=== PATIENT | female | born 1995 | race Caucasian/White ===

== ENCOUNTER 2021-10-17 | Outpatient (REF) | payer OTHER, SELFPAY | END 2021-10-17 00:01 | disposition home or self-care (01) | LOC: HO.HMGCLDS | PROVIDERS: PCP Internal Medicine; Visit Provider Internal Medicine | DX: Z13.89 Encounter for screening for other disorder (principal) ==

== ENCOUNTER 2024-06-14 13:04 | Outpatient (REF) | payer OTHER, SELFPAY ==
[2024-06-19 06:19] LABS: Venous Lead <1.0 mcg/dL (<3.5)
== END 2024-06-14 13:05 | disposition home or self-care (01) ==
LOC: HO.HMGCLDS 13:04
PROVIDERS: PCP Internal Medicine; Visit Provider Internal Medicine
DX: Z00.00 Encounter for general adult medical examination without abnormal findings (principal); Z13.88 Encounter for screening for disorder due to exposure to contaminants; Z13.30 Encounter for screening examination for mental health and behavioral disorders, unspecified; Z98.891 History of uterine scar from previous surgery
CPT/HCPCS: 36415; 83655; 96127; 99395

== ENCOUNTER 2024-06-14 13:04 | Outpatient (AMB) | payer OTHER, SELFPAY ==
[2024-06-14 13:09] VITALS: BP 118/78; PULSE 85; O2SAT 98; BMI 29.1
--- NOTE | 2024-06-14 13:09 | MHC.PC.OV ---
Vital Signs 06/14/24 13:09 Height 5 ft 3.5 in Weight 167 lb 2 oz BMI 29.1 BP 118/78 Blood Pressure Location Lt brachial Position Sitting Pulse 85 Pulse Source Pulse Oximeter Pulse Oximetry (%) 98 Oxygen Delivery Method Room Air Intake Visit Reasons: PE Intake Note: Pt is here today for her Annual Physical. Allergies aspirin [ASPIRIN] Allergy (Unknown, Verified 06/14/24 13:10) RASH Medication List - Last Reconciled 06/14/24 by oJnna Mosher MD vit [id number] 28 mg iron- 800 mcg (Classic ) 1 tab PO DAILY simethicone 80 mg PO Q6H Tobacco use date assessed: 06/14/24 Dental Screening Dental Screen Date: 06/14/24 Did you have a dental visit in the last 12 months?: Yes Did you have a dental problem in the last 6 months where you did not have access to dental care?: No Was dental information given to patient?: Patient has dentist HPI PE HPI Details Pt presents for PE. Patient had a baby 1 month ago and doing well. Patient had an uneventful and . 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 [facility] Medical History Annual physical exam Vaginosis Chest pain Surgical History Hx of section No pertinent past surgical history Family History Father TIA (transient ischemic attack) Mother Prediabetes Social History (Updated 06/14/24 @ 13:49 by Jonna Mosher MD) Household Members Other:: 2 children, 2 yr and 1 month girl, Housing: Apartment Alcohol intake: never Patient Tobacco Use Status: Never used Tobacco e-Cigarette/Vaping Use: Never Used Current occupational status: unemployed Gender identity: Female Cognitive needs: No Hearing needs: No Vision needs: Yes Female Reproductive History Menstrual Age of Menarche: 13 Questionnaire PHQ-9 Over the last 2 weeks, how often have you been bothered by any of the following problems? 22892 - PHQ-9 Billing: Patient declined-do not bill Source: Developed by Drs. Marquis Swenson, Dede B.W. Edmundo Elaine and colleagues, with an educational lester from [employer]. Thrive Questionnaire Date Thrive assessed: 06/14/24 I am a: Patient What is your living situation today?: I have a steady place to live Within the past 12 months, did the food you bought not last and you didn't have the money to get more?: Never true Within the past 12 months, did you worry whether your food would run out before you got money to buy more?: Never true Do you have trouble paying for medicines?: No Do you have trouble getting transportation to medical appointments?: No Do you have trouble paying your heating and electricity bill?: No Do you have trouble taking care of your child, family member or friend?: No Do you have trouble with day-to-day activities such as bathing, preparing meals, shopping, managing finances, etc.?: No Are you currently unemployed and looking for a job?: No Are you interested in more education?: No Please select the resources that you would like help with: None Currently or been in a relationship where the following occur: No concerns reported THRIVE Score: 0 AUDIT C Alcohol Use Questionnaire (AUDIT-C) 1. How often do you have a drink containing alcohol?: Never 3. How often do you have six or more drinks on one occasion?: Never Total Score: 0 Score Reviewed/Action Taken: Yes JULIET-7 AMB Questionnaire JULIET-7 Date JULIET - 7 assessed: 06/14/24 Feeling nervous, anxious, or on edge: 0 = Not at all Not being able to stop or control worryin = Not at all Worrying too much about different things: 0 = Not at all Trouble relaxin = Not at all Being so restless that it is hard to sit still: 0 = Not at all Becoming easily annoyed or irritable: 0 = Not at all Feeling afraid as if something awful might happen: 0 = Not at all Total JULIET-7 score (0-4 normal; 5-9 mild; 10-14 moderate; 15-21 severe): 0 Source: Developed by Drs. Marquis Swenson, Edmundo Bolaños and colleagues, with an educational lester from [employer]. JULIET-7 Assessment Billing JULIET-7 Assessment Tool: JULIET-7 Assessment 46449 Review of Systems Const All systems reviewed & are unremarkable except as noted in HPI and below Eyes Reports no additional complaints ENT Reports no additional complaints Card Reports no additional complaints Resp Reports no additional complaints GI Reports no additional complaints Reports no additional complaints Physical exam (Primary Care) Vital Signs: Last Vital Signs Pulse 85 06/14/24 13:09 BP 118/78 06/14/24 13:09 Pulse Ox 98 06/14/24 13:09 Oxygen Delivery Method Room Air 06/14/24 13:09 BMI result Body Mass Index 29.1 Tobacco/Smoking Status: Tobacco use Status Tobacco use date assessed 06/14/24 06/14/24 13:13 Patient Tobacco Use Status Never used Tobacco 06/14/24 13:13 e-Cigarette/Vaping Use Never Used 06/14/24 13:13 Thrive Assessment: Date of Thrive Assessment Date Thrive assessed 06/14/24 06/14/24 13:13 Currently or been in a relationship where the following occur: No concerns reported Const General: no acute distress HENMT Head: Yes normal to inspection Ears: hearing grossly normal bilaterally Mouth: Normal oral and palatal mucosa present Throat: Yes posterior oropharynx normal Eyes General: appearance normal, both eyes and all related structures Neck Neck: Yes no lymphadenopathy and Yes supple Resp Effort & Inspection: normal respiratory effort Auscultation: clear to auscultation bilaterally Cardio Rhythm: regular rhythm Heart sounds: S1 normal heart sound present and S2 normal heart sound present GI Inspection: Yes normal to inspection Palpation (GI): Soft to palpation Percussion: Yes normal to percussion Auscultation: normal bowel sounds Coding Level of Care Code Est Pt Prev Care 18-39y(53397) Diagnoses Annual physical exam Z00.00 Additional Codes JULIET-7 Assessment Billing - JULIET-7 Assessment Tool: JULIET-7 Assessment 46564 ([id number]) Assessment & Plan Assessment & Plan (1) Annual physical exam: Code(s): Z00.00 - Encounter for general adult medical examination without abnormal findings Category: Medical Plan: Well-balanced diet regular physical activity discussed with the patient. Medications: Discontinued lactobacillus combination no.4 (Probiotic) administer with a meal Discontinued Reason: Patient no longer taking 3,000 mmu cells PO DAILY 90 caps 3RF
--- OUTSIDE RECORDS SUMMARY | 2024-06-14 15:33 | XMS_ITS | Encounter Summary ---
Author Organization [facility] Address [address] [place] [address] Phone Care Team Providers Care Director Packaging Name Role Phone Natali Lo MD Primary Care Provider Unavailabl e Encounter Details Date Type Department Care Team (Late st Contact Info) Description 07/26/2016 Documentation [facility] [place] [facility] [place] [address] Family Medicine, Physician [facility] [place], [place] [id number] Social History Tobacco Use Types Packs/Day Years Used Date Smoking Tobacco: Never Comments:Never smoker Comments Unknown Sex and Gender Information Value Date Recorded Sex Assigned at Not on file Legal Sex Female 5:20 PM EDT Gender Identity Not on file Sexual Orientation Not on file documented as of this encounter Plan of Treatment Not on file documented as of this encounter Visit Diagnoses Not on filedocumented in this encounter Care Teams Director Packaging Relationship Specialty Start Date End Date Natali Lo MD PCP - General 11/05/16 documented as of this encounter
--- OUTSIDE RECORDS SUMMARY | 2024-06-14 15:33 | XMS_ITS | Encounter Summary ---
Author Organization [facility] Address [address] [place] [address] Phone Care Team Providers Care X Ray Operator Name Role Phone Natali Lo MD Primary Care Provider Unavailabl e Encounter Details Date Type Department Care Team (Late st Contact Info) Description 04/21/2012 Documentation [facility] [place] Family Medicine [facility] [place] [address] Family Medicine, Physician [facility] [place] [id number] Social History Tobacco Use Types Packs/Day Years Used Date Smoking Tobacco: Never Assessed Comments Unknown Sex and Gender Information Value Date Recorded Sex Assigned at Not on file Legal Sex Female 5:20 PM EDT Gender Identity Not on file Sexual Orientation Not on file documented as of this encounter Plan of Treatment Not on file documented as of this encounter Visit Diagnoses Not on filedocumented in this encounter Care Teams X Ray Operator Relationship Specialty Start Date End Date Natali Lo MD PCP - General 11/05/16 documented as of this encounter
--- OUTSIDE RECORDS SUMMARY | 2024-06-14 15:33 | XMS_ITS | Encounter Summary ---
Author Organization [facility] Address [address] [place] [address] Phone Care Team Providers Care Hydro Plant Site Manager Name Role Phone Natali Lo MD Primary Care Provider Unavailabl e Encounter Details Date Type Department Care Team (Late st Contact Info) Description 01/27/2017 Conversion Encounter [facility] - [address] [address] Social History Tobacco Use Types Packs/Day Years [...] on filedocumented in this encounter Care Teams Hydro Plant Site Manager Relationship Specialty Start Date End Date aNtali Lo MD PCP - General 11/05/16 documented as of this encounter
--- OUTSIDE RECORDS SUMMARY | 2024-06-14 15:33 | XMS_ITS | Clinical Summary ---
Author Organization [facility] Address [address] [place] [address] Phone Care Team Providers Care Teachers Aide Name Role Phone Unavailable Primary Care Provider Unavailabl e Encounters Date Type Department Care Team Description 04/13/2024 2:00 PM EST Ancillary Procedure Maternal Medicine - [address] [phone] Encounter for anatomic survey from Last 3 Months Social History Tobacco Use Types Packs/Day Years Used Date Smoking Tobacco: Never Assessed Comments Unknown Sex and Gender Information Value Date Recorded Sex Assigned at Female 04/09/2024 1:38 PM EST Legal Sex Female 2:31 PM EST Gender Identity Female 04/09/2024 1:38 PM EST Sexual Orientation Choose not to disclose 2024 1:38 PM EST Plan of Treatment Health Maintenance Due Date Last Done Comments Pneumococcal Vaccine: Pediatrics (0 to 5 Years) and At-Risk Patients (6 to 64 Years) (1 of 2 - PCV) 09/28/2015 Cervical Cancer Screening: Pap Smear 2017 DTaP,Tdap,and Td Vaccines (7 - Td or Tdap) 02/04/2019 02/04/2009, 10/11/2000, 04/10/1998, Additional history exists COVID-19 Vaccine ( season) 2023 Influenza Vaccine (#1) 2023 1, 02/05/2010, 02/04/2009, Additional history exists Depression Screening 04/09/2024 HIV Screening 04/09/2024 Hepatitis C Screening 04/09/2024 Social Influencers of Health Screening 04/09/2024 Hepatitis B Vaccines Completed 04/05/1997, 01/30/1997, 1996 HIB Vaccines Completed 04/15/1998, 11/1997, 01/30/1997, Additional history exists MMR Vaccines Completed 10/11/2000, 10/08/1997 Varicella Vaccines Aged Out 10/11/2000 No longer eligible based on patient's age to complete this topic IPV Vaccines Completed 10/13/2000, 11/1997, 01/30/1997, Additional history exists HPV Vaccines Completed 02/09/2011, 01/26, 02/04/2009 Hepatitis A Vaccines Completed 11/25/2015, 08/23/19 14 Meningococcal ACWY Vaccine Aged Out 11/25/2015, No longer eligible based on patient's age to complete this topic Meningococcal B Vacine Aged Out No lo nger eligible based on patient's age to complete this topic RSV Immunization Patients Under 20 months Aged Out No longer eligible based on patient's age to complete this topic Procedures Procedure Name Priority Date/Time Associated Diagnosis Comments US OB TRANSVAGINAL Routine 04/13/2024 3: 42 PM EST Encounter for anatomic survey US OB DETAILED SINGLE OR FIRST GESTATION Routine 04/13/2024 3:42 PM EST Encounter for anatomic survey from Last 3 Months Results * US OB Transvaginal (04/13/2024 3:42 PM EST) Anatomical Region Laterality Modality Body Ultrasound 04/13/2024 3:09 PM EST Impressions 04/17/2024 12:10 PM EST Recommendations/Plan: No additional ultrasounds have been scheduled. Follow up as clinically indicated. Addendum - Report update to state that there are no signs of accreta. Narrative 04/17/2024 12:10 PM EST OBSTETRICS REPORT ? (Corrected Final 04/19/2024 01:34 pm) PATIENT INFO: ID #: ? [id number] ? : ??[birth year] (28 yrs)(F) Name: ? SUSANNA WOMACK ? Visit Date: 04/13/2024 03:09 pm ? HENRY PERFORMED BY: Attending: ?Cassie Wetzel MD Performed By: ? Travis Boyd RDMS Referred By: ?DAVID GODDARD MD Location: ? [facility] SERVICE(S) PROVIDED: US Level II complete (Targeted OB) ?90418 OB Transvaginal ultrasound ?25848 INDICATIONS: Obesity complicating , 1st ?O99.211 trimester Maternal care for scar from previous ? O34.211 delivery, low transverse scar 34 weeks gestation of ?Z3A.34 TECHNIQUE/SCAN QUALITY: Technique: ?? Transabdominal & Transvaginal Scan ? Satisfactory Quality: OB HISTORY: : ?2 ? Term: ?? 1 Living: ? 1 VITAL SIGNS: Weight (lb) ?? Height ?BMI 171 ? 5'3 ?30.29 EVALUATION: Number Of Fetuses: ? 1 Preg. Location: ?Intrauterine Heart Rate(bpm): ?? 152 Cardiac Activity: ?Observed Presentation: ?Cephalic Placenta Location: ?Anterior Appearance: ?Grade 2 Relation to CVX: ? No previa Cord Insertion: ?Normal appearance Amniotic Fluid MARLENY FV: ?Within Normal Limits RUQ(cm) ? RLQ(cm) ?LLQ(cm) 5.96 ?2.67 ? 2.17 MARLENY Sum(cm) ? %Tile ? Largest Pocket(cm) 10.8 ?26 ?5.96 Comment: ?A >2 x 2 cm pocket of fluid is noted. BIOMETRY: BPD: ?85.3 ??mm ? G.Age: ?? 34w 3d ?37 ??% HC: ?311.8 ??mm ? G.Age: ?? 34w 6d ?18 ??% AC: ?302.8 ??mm ? G.Age: ?? 34w 2d ?38 ??% FL: ? 64.3 ??mm ? G.Age: ?? 33w 1d ? 8 ??% HUM: ?56 ??mm ? G.Age: ?? 32w 4d ?18 ??% CER: ?47.3 ??mm ? G.Age: ?? N/A ? > 95 ??% NB: ?12.61 ??mm ? 75 ??% LV: ?4.1 ??mm CM: ?7.5 ??mm OOD: ?51.9 ??mm ? G.Age: ?? 31w 6d ?45 ??% CI: ? 75.29 ??% ? 70 - 86 FL/HC: ? 20.6 ??% ? 20.1 - 22.3 HC/AC: ? 1.03 ?0.93 - 1.11 FL/BPD: ?75.4 ??% ? 71 - 87 FL/AC: ? 21.2 ??% ? 20 - 24 Est. FW: ?2333 ??gm ?5 lb 2 oz ? 24 ??% GESTATIONAL AGE: LMP: ? 34w 6d ?Date: ??08/13/23 ?BLANCHE: ?? 05/19/24 U/S Today: ? 34w 1d ?BLANCHE: ?? 05/24/24 Best: ?34w 6d ?? Det. By: ??LMP ??(08/13/23) ?BLANCHE: ?? 05/19/24 DETAILED ANATOMY: Head / Neck Cranial Vault: ?Normal appearance Cavum Septi Pellucidi: ??Normal appearance Parenchyma: ? Normal appearance R. Lat. Ventricle: ?Normal appearance L. Lat. Ventricle: ?Normal appearance Corpus Callosum: ?Suboptimal views Midline Falx: ? Normal appearance R. Choroid Plexus: ?Normal appearance L. Choroid Plexus.: ? Normal appearance Cerebellum: ? Normal appearance CCisterna Magna: ?Normal appearance Neck: ? Suboptimal views Face Face Profile: ? Normal appearance Nasal Bone: ? Normal appearance Coronal Face: ? Normal appearance Lips: ? Normal appearance Nose: ? Normal appearance Lenses: ? Normal appearance Orbits: ? Normal appearance Palate: ? Suboptimal views Heart Cardiac Activity: ? Normal appearance Cardiac Rhythm: ? Normal appearance 4 Chamber View: ? Suboptimal views R. Outflow Tract: ? Normal appearance L. Outflow Tract: ? Normal appearance Interventr. Septum: ? Normal appearance 3 Vessel View: ?Normal appearance 3V Trachea View: ?Normal appearance Cardiac Situs: ?Normal appearance Aortic ??Arch: ? Suboptimal views SVC: ?Normal appearance IVC: ?Normal appearance Ductal ??Arch: ? Suboptimal views Crossing G. Ves.: ? Normal appearance Thorax Lungs: ?Normal appearance Cardiac Harrison: ? Normal appearance Diaphragm: ?Normal appearance Thoracic Contour: ? Normal appearance Abdomen Situs: ?Normal appearance Stomach: ?Normal appearance Bowel: ?Normal appearance Liver: ?Normal appearance Abdominal Wall: ? Normal appearance Urinary Bladder: ?Normal appearance R. Kidney: ?Normal appearance L. Kidney: ?Normal appearance R. Renal Artery: ?Normal appearance L. Renal Artery: ?Normal appearance Umbilical Cord: ? Normal Appearance UC Vessel Num.: ? Normal 3VC Cord Insertion: ? Suboptimal views Spine Cervical: ? Normal appearance Thoracic: ? Normal appearance Lumbar: ? Normal appearance Sacral: ? Normal appearance Shape / Curvature: ?Normal appearance Over. Soft Tissue: ?Suboptimal views Vertebral Body: ? Normal appearance Extremities R. Humerus: ? Normal appearance L. Humerus: ? Normal appearance R. Forearm: ? Normal appearance L. Forearm: ? Suboptimal views R. Hand: ?Suboptimal views L. Hand: ?Suboptimal views R. Femur: ? Normal appearance L. Femur: ? Normal appearance R. Lower Leg: ? Normal appearance L. Lower Leg: ? Suboptimal views R. Foot: ?Normal appearance L. Foot: ?Normal appearance CERVIX UTERUS ADNEXA: Cervix Appears closed COMMENTS: Ms. Hola Louise is being seen for a detailed ultrasound and placenta evaluation. ??. - Her medical history is not contributory. Her obstetrical history is significant one term delivery. - Ultrasound findings: The estimated weight is 2333 grams, at the 24th percentile. The amniotic fluid index is 10.8 cm, appropriate for the gestational age. - The detailed anatomical survey was incomplete due to position and advanced gestational age. ??Views were overall reassuring and no abnormalities were detected. - The anterior placenta is not low lying nor a previa. ??The inferior edge is greater than 4 cm from the lower uterine segment where a low-transverse incision is typically performed. ??There are no sonographic signs of accreta. - Cassie Wetzel MD Electronically Signed Corrected Final Report ??04/19/2024 01:34 pm Procedure Note Cassie Wetzel MD - 04/19/2024 OBSTETRICS REPORT (Corrected Final 04/19/2024 01:34 pm) PATIENT INFO: ID #: [id number] : [birth year] (28 yrs)(F) Name: SUSANNA WOMACK Visit Date: 04/13/2024 03:09 pm HENRY PERFORMED BY: Attending: Cassie Wetzel MD Performed By: Travis Boyd RDMS Referred By: DAVID GODDARD MD Location: [facility] SERVICE(S) PROVIDED: US Level II complete (Targeted OB) 74667 OB Transvaginal ultrasound 73728 INDICATIONS: Obesity complicating , 1st O99.211 trimester Maternal care for scar from previous O34.211 delivery, low transverse scar 34 weeks gestation of Z3A.34 TECHNIQUE/SCAN QUALITY: Technique: Transabdominal & Transvaginal Scan Satisfactory Quality: OB HISTORY: : 2 Term: 1 Livin VITAL SIGNS: Weight (lb) Height BMI 171 5'3 30.29 EVALUATION: Number Of Fetuses: 1 Preg. Location: Intrauterine Heart Rate(bpm): 152 Cardiac Activity: Observed Presentation: Cephalic Placenta Location: Anterior Appearance: Grade 2 Relation to CVX: No previa Cord Insertion: Normal appearance Amniotic Fluid MARLENY FV: Within Normal Limits RUQ(cm) RLQ(cm) LLQ(cm) 5.96 2.67 2.17 MARLNEY Sum(cm) %Tile Largest Pocket(cm) 10.8 26 5.96 Comment: A >2 x 2 cm pocket of fluid is noted. BIOMETRY: BPD: 85.3 mm G.Age: 34w 3d 37 % HC: 311.8 mm G.Age: 34w 6d 18 % AC: 302.8 mm G.Age: 34w 2d 38 % FL: 64.3 mm G.Age: 33w 1d 8 % HUM: 56 mm G.Age: 32w 4d 18 % CER: 47.3 mm G.Age: N/A > 95 % NB: 12.61 mm 75 % LV: 4.1 mm CM: 7.5 mm OOD: 51.9 mm G.Age: 31w 6d 45 % CI: 75.29 % 70 - 86 FL/HC: 20.6 % 20.1 - 22.3 HC/AC: 1.03 0.93 - 1.11 FL/BPD: 75.4 % 71 - 87 FL/AC: 21.2 % 20 - 24 Est. FW: 2333 gm 5 lb 2 oz 24 % GESTATIONAL AGE: LMP: 34w 6d Date: 08/13/23 BLANCHE: 05/19/24 U/S Today: 34w 1d BLANCHE: 05/24/24 Best: 34w 6d Det. By: LMP (08/13/23) BLANCHE: 05/19/24 DETAILED ANATOMY: Head / Neck Cranial Vault: Normal appearance Cavum Septi Pellucidi: Normal appearance Parenchyma: Normal appearance R. Lat. Ventricle: Normal appearance L. Lat. Ventricle: Normal appearance Corpus Callosum: Suboptimal views Midline Falx: Normal appearance R. Choroid Plexus: Normal appearance L. Choroid Plexus.: Normal appearance Cerebellum: Normal appearance CCisterna Magna: Normal appearance Neck: Suboptimal views Face Face Profile: Normal appearance Nasal Bone: Normal appearance Coronal Face: Normal appearance Lips: Normal appearance Nose: Normal appearance Lenses: Normal appearance Orbits: Normal appearance Palate: Suboptimal views Heart Cardiac Activity: Normal appearance Cardiac Rhythm: Normal appearance 4 Chamber View: Suboptimal views R. Outflow Tract: Normal appearance L. Outflow Tract: Normal appearance Interventr. Septum: Normal appearance 3 Vessel View: Normal appearance 3V Trachea View: Normal appearance Cardiac Situs: Normal appearance Aortic Arch: Suboptimal views SVC: Normal appearance IVC: Normal appearance Ductal Arch: Suboptimal views Crossing G. Ves.: Normal appearance Thorax Lungs: Normal appearance Cardiac Harrison: Normal appearance Diaphragm: Normal appearance Thoracic Contour: Normal appearance Abdomen Situs: Normal appearance Stomach: Normal appearance Bowel: Normal appearance Liver: Normal appearance Abdominal Wall: Normal appearance Urinary Bladder: Normal appearance R. Kidney: Normal appearance L. Kidney: Normal appearance R. Renal Artery: Normal appearance L. Renal Artery: Normal appearance Umbilical Cord: Normal Appearance UC Vessel Num.: Normal 3VC Cord Insertion: Suboptimal views Spine Cervical: Normal appearance Thoracic: Normal appearance Lumbar: Normal appearance Sacral: Normal appearance Shape / Curvature: Normal appearance Over. Soft Tissue: Suboptimal views Vertebral Body: Normal appearance Extremities R. Humerus: Normal appearance L. Humerus: Normal appearance R. Forearm: Normal appearance L. Forearm: Suboptimal views R. Hand: Suboptimal views L. Hand: Suboptimal views R. Femur: Normal appearance L. Femur: Normal appearance R. Lower Leg: Normal appearance L. Lower Leg: Suboptimal views R. Foot: Normal appearance L. Foot: Normal appearance CERVIX UTERUS ADNEXA: Cervix Appears closed COMMENTS: Ms. Hola Louise is being seen for a detailed ultrasound and placenta evaluation. . - Her medical history is not contributory. Her obstetrical history is significant one term delivery. - Ultrasound findings: The estimated weight is 2333 grams, at the 24th percentile. The amniotic fluid index is 10.8 cm, appropriate for the gestational age. - The detailed anatomical survey was incomplete due to position and advanced gestational age. Views were overall reassuring and no abnormalities were detected. - The anterior placenta is not low lying nor a previa. The inferior edge is greater than 4 cm from the lower uterine segment where a low-transverse incision is typically performed. There are no sonographic signs of accreta. - Cassie Wetzel MD Electronically Signed Corrected Final Report 04/19/2024 01:34 pm IMPRESSION: Recommendations/Plan: No additional ultrasounds have been scheduled. Follow up as clinically indicated. Addendum - Report update to state that there are no signs of accreta. us David Kelly MD IMG OB US PROCEDURES Yomi brandy Result - Final * US OB Detailed Single or First Gestation (04/13/2024 3:42 PM EST) Anatomical Region Laterality Modality Body Ultrasound 04/13/2024 3:09 PM EST Impressions 04/17/2024 12:10 PM EST Recommendations/Plan: No additional ultrasounds have been scheduled. Follow up as clinically indicated. Addendum - Report update to state that there are no signs of accreta. Narrative 04/17/2024 12:10 PM EST OBSTETRICS REPORT ? (Corrected Final 04/19/2024 01:34 pm) PATIENT INFO: ID #: ? [id number] ? : ??[birth year] (28 yrs)(F) Name: ? SUSANNA WOMACK ? Visit Date: 04/13/2024 03:09 pm ? HENRY PERFORMED BY: Attending: ?Cassie Wetzel MD Performed By: ? Travis Boyd RDMS Referred By: ?DAVID GODDARD MD Location: ? [facility] SERVICE(S) PROVIDED: US Level II complete (Targeted OB) ?14293 OB Transvaginal ultrasound ?24555 INDICATIONS: Obesity complicating , 1st ?O99.211 trimester Maternal care for scar from previous ? O34.211 delivery, low transverse scar 34 weeks gestation of ?Z3A.34 TECHNIQUE/SCAN QUALITY: Technique: ?? Transabdominal & Transvaginal Scan ? Satisfactory Quality: OB HISTORY: : ?2 ? Term: ?? 1 Living: ? 1 VITAL SIGNS: Weight (lb) ?? Height ?BMI 171 ? 5'3 ?30.29 EVALUATION: Number Of Fetuses: ? 1 Preg. Location: ?Intrauterine Heart Rate(bpm): ?? 152 Cardiac Activity: ?Observed Presentation: ?Cephalic Placenta Location: ?Anterior Appearance: ?Grade 2 Relation to CVX: ? No previa Cord Insertion: ?Normal appearance Amniotic Fluid MARLENY FV: ?Within Normal Limits RUQ(cm) ? RLQ(cm) ?LLQ(cm) 5.96 ?2.67 ? 2.17 MARLENY Sum(cm) ? %Tile ? Largest Pocket(cm) 10.8 ?26 ?5.96 Comment: ?A >2 x 2 cm pocket of fluid is noted. BIOMETRY: BPD: ?85.3 ??mm ? G.Age: ?? 34w 3d ?37 ??% HC: ?311.8 ??mm ? G.Age: ?? 34w 6d ?18 ??% AC: ?302.8 ??mm ? G.Age: ?? 34w 2d ?38 ??% FL: ? 64.3 ??mm ? G.Age: ?? 33w 1d ? 8 ??% HUM: ?56 ??mm ? G.Age: ?? 32w 4d ?18 ??% CER: ?47.3 ??mm ? G.Age: ?? N/A ? > 95 ??% NB: ?12.61 ??mm ? 75 ??% LV: ?4.1 ??mm CM: ?7.5 ??mm OOD: ?51.9 ??mm ? G.Age: ?? 31w 6d ?45 ??% CI: ? 75.29 ??% ? 70 - 86 FL/HC: ? 20.6 ??% ? 20.1 - 22.3 HC/AC: ? 1.03 ?0.93 - 1.11 FL/BPD: ?75.4 ??% ? 71 - 87 FL/AC: ? 21.2 ??% ? 20 - Est. FW: ?2333 ??gm ?5 lb 2 oz ? 24 ??% GESTATIONAL AGE: LMP: ? 34w 6d ?Date: ??08/13/23 ?BLANCHE: ?? 05/19/24 U/S Today: ? 34w 1d ?BLANCHE: ?? 05/24/24 Best: ?34w 6d ?? Det. By: ??LMP ??(08/13/23) ?BLANCHE: ?? 05/19/24 DETAILED ANATOMY: Head / Neck Cranial Vault: ?Normal appearance Cavum Septi Pellucidi: ??Normal appearance Parenchyma: ? Normal appearance R. Lat. Ventricle: ?Normal appearance L. Lat. Ventricle: ?Normal appearance Corpus Callosum: ?Suboptimal views Midline Falx: ? Normal appearance R. Choroid Plexus: ?Normal appearance L. Choroid Plexus.: ? Normal appearance Cerebellum: ? Normal appearance CCisterna Magna: ?Normal appearance Neck: ? Suboptimal views Face Face Profile: ? Normal appearance Nasal Bone: ? Normal appearance Coronal Face: ? Normal appearance Lips: ? Normal appearance Nose: ? Normal appearance Lenses: ? Normal appearance Orbits: ? Normal appearance Palate: ? Suboptimal views Heart Cardiac Activity: ? Normal appearance Cardiac Rhythm: ? Normal appearance 4 Chamber View: ? Suboptimal views R. Outflow Tract: ? Normal appearance L. Outflow Tract: ? Normal appearance Interventr. Septum: ? Normal appearance 3 Vessel View: ?Normal appearance 3V Trachea View: ?Normal appearance Cardiac Situs: ?Normal appearance Aortic ??Arch: ? Suboptimal views SVC: ?Normal appearance IVC: ?Normal appearance Ductal ??Arch: ? Suboptimal views Crossing G. Ves.: ? Normal appearance Thorax Lungs: ?Normal appearance Cardiac Harrison: ? Normal appearance Diaphragm: ?Normal appearance Thoracic Contour: ? Normal appearance Abdomen Situs: ?Normal appearance Stomach: ?Normal appearance Bowel: ?Normal appearance Liver: ?Normal appearance Abdominal Wall: ? Normal appearance Urinary Bladder: ?Normal appearance R. Kidney: ?Normal appearance L. Kidney: ?Normal appearance R. Renal Artery: ?Normal appearance L. Renal Artery: ?Normal appearance Umbilical Cord: ? Normal Appearance UC Vessel Num.: ? Normal 3VC Cord Insertion: ? Suboptimal views Spine Cervical: ? Normal appearance Thoracic: ? Normal appearance Lumbar: ? Normal appearance Sacral: ? Normal appearance Shape / Curvature: ?Normal appearance Over. Soft Tissue: ?Suboptimal views Vertebral Body: ? Normal appearance Extremities R. Humerus: ? Normal appearance L. Humerus: ? Normal appearance R. Forearm: ? Normal appearance L. Forearm: ? Suboptimal views R. Hand: ?Suboptimal views L. Hand: ?Suboptimal views R. Femur: ? Normal appearance L. Femur: ? Normal appearance R. Lower Leg: ? Normal appearance L. Lower Leg: ? Suboptimal views R. Foot: ?Normal appearance L. Foot: ?Normal appearance CERVIX UTERUS ADNEXA: Cervix Appears closed COMMENTS: Ms. Hola Louise is being seen for a detailed ultrasound and placenta evaluation. ??. - Her medical history is not contributory. Her obstetrical history is significant one term delivery. - Ultrasound findings: The estimated weight is 2333 grams, at the 24th percentile. The amniotic fluid index is 10.8 cm, appropriate for the gestational age. - The detailed anatomical survey was incomplete due to position and advanced gestational age. ??Views were overall reassuring and no abnormalities were detected. - The anterior placenta is not low lying nor a previa. ??The inferior edge is greater than 4 cm from the lower uterine segment where a low-transverse incision is typically performed. ??There are no sonographic signs of accreta. - Cassie Wetzel MD Electronically Signed Corrected Final Report ??04/19/2024 01:34 pm Procedure Note Cassie Wetzel MD - 04/19/2024 OBSTETRICS REPORT (Corrected Final 04/19/2024 01:34 pm) PATIENT INFO: ID #: [id number] : [birth year] (28 yrs)(F) Name: SUSANNA WOMACK Visit Date: 04/13/2024 03:09 pm HENRY PERFORMED BY: Attending: Cassie Wetzel MD Performed By: Travis Boyd RDMS Referred By: DAVID GODDARD MD Location: [facility] SERVICE(S) PROVIDED: US Level II complete (Targeted OB) 80111 OB Transvaginal ultrasound 49866 INDICATIONS: Obesity complicating , 1st O99.211 trimester Maternal care for scar from previous O34.211 delivery, low transverse scar 34 weeks gestation of Z3A.34 TECHNIQUE/SCAN QUALITY: Technique: Transabdominal & Transvaginal Scan Satisfactory Quality: OB HISTORY: : 2 Term: 1 Livin VITAL SIGNS: Weight (lb) Height BMI 171 5'3 30.29 EVALUATION: Number Of Fetuses: 1 Preg. Location: Intrauterine Heart Rate(bpm): 152 Cardiac Activity: Observed Presentation: Cephalic Placenta Location: Anterior Appearance: Grade 2 Relation to CVX: No previa Cord Insertion: Normal appearance Amniotic Fluid MARLENY FV: Within Normal Limits RUQ(cm) RLQ(cm) LLQ(cm) 5.96 2.67 2.17 MARLENY Sum(cm) %Tile Largest Pocket(cm) 10.8 26 5.96 Comment: A >2 x 2 cm pocket of fluid is noted. BIOMETRY: BPD: 85.3 mm G.Age: 34w 3d 37 % HC: 311.8 mm G.Age: 34w 6d 18 % AC: 302.8 mm G.Age: 34w 2d 38 % FL: 64.3 mm G.Age: 33w 1d 8 % HUM: 56 mm G.Age: 32w 4d 18 % CER: 47.3 mm G.Age: N/A > 95 % NB: 12.61 mm 75 % LV: 4.1 mm CM: 7.5 mm OOD: 51.9 mm G.Age: 31w 6d 45 % CI: 75.29 % 70 - 86 FL/HC: 20.6 % 20.1 - 22.3 HC/AC: 1.03 0.93 - 1.11 FL/BPD: 75.4 % 71 - 87 FL/AC: 21.2 % 20 - 24 Est. FW: 2333 gm 5 lb 2 oz 24 % GESTATIONAL AGE: LMP: 34w 6d Date: 08/13/23 BLANCHE: 05/19/24 U/S Today: 34w 1d BLANCHE: 05/24/24 Best: 34w 6d Det. By: LMP (08/13/23) BLANCHE: 05/19/24 DETAILED ANATOMY: Head / Neck Cranial Vault: Normal appearance Cavum Septi Pellucidi: Normal appearance Parenchyma: Normal appearance R. Lat. Ventricle: Normal appearance L. Lat. Ventricle: Normal appearance Corpus Callosum: Suboptimal views Midline Falx: Normal appearance R. Choroid Plexus: Normal appearance L. Choroid Plexus.: Normal appearance Cerebellum: Normal appearance CCisterna Magna: Normal appearance Neck: Suboptimal views Face Face Profile: Normal appearance Nasal Bone: Normal appearance Coronal Face: Normal appearance Lips: Normal appearance Nose: Normal appearance Lenses: Normal appearance Orbits: Normal appearance Palate: Suboptimal views Heart Cardiac Activity: Normal appearance Cardiac Rhythm: Normal appearance 4 Chamber View: Suboptimal views R. Outflow Tract: Normal appearance L. Outflow Tract: Normal appearance Interventr. Septum: Normal appearance 3 Vessel View: Normal appearance 3V Trachea View: Normal appearance Cardiac Situs: Normal appearance Aortic Arch: Suboptimal views SVC: Normal appearance IVC: Normal appearance Ductal Arch: Suboptimal views Crossing G. Ves.: Normal appearance Thorax Lungs: Normal appearance Cardiac Harrison: Normal appearance Diaphragm: Normal appearance Thoracic Contour: Normal appearance Abdomen Situs: Normal appearance Stomach: Normal appearance Bowel: Normal appearance Liver: Normal appearance Abdominal Wall: Normal appearance Urinary Bladder: Normal appearance R. Kidney: Normal appearance L. Kidney: Normal appearance R. Renal Artery: Normal appearance L. Renal Artery: Normal appearance Umbilical Cord: Normal Appearance UC Vessel Num.: Normal 3VC Cord Insertion: Suboptimal views Spine Cervical: Normal appearance Thoracic: Normal appearance Lumbar: Normal appearance Sacral: Normal appearance Shape / Curvature: Normal appearance Over. Soft Tissue: Suboptimal views Vertebral Body: Normal appearance Extremities R. Humerus: Normal appearance L. Humerus: Normal appearance R. Forearm: Normal appearance L. Forearm: Suboptimal views R. Hand: Suboptimal views L. Hand: Suboptimal views R. Femur: Normal appearance L. Femur: Normal appearance R. Lower Leg: Normal appearance L. Lower Leg: Suboptimal views R. Foot: Normal appearance L. Foot: Normal appearance CERVIX UTERUS ADNEXA: Cervix Appears closed COMMENTS: Ms. Hola Louise is being seen for a detailed ultrasound and placenta evaluation. . - Her medical history is not contributory. Her obstetrical history is significant one term delivery. - Ultrasound findings: The estimated weight is 2333 grams, at the 24th percentile. The amniotic fluid index is 10.8 cm, appropriate for the gestational age. - The detailed anatomical survey was incomplete due to position and advanced gestational age. Views were overall reassuring and no abnormalities were detected. - The anterior placenta is not low lying nor a previa. The inferior edge is greater than 4 cm from the lower uterine segment where a low-transverse incision is typically performed. There are no sonographic signs of accreta. - Cassie Wetzel MD Electronically Signed Corrected Final Report 04/19/2024 01:34 pm IMPRESSION: Recommendations/Plan: No additional ultrasounds have been scheduled. Follow up as clinically indicated. Addendum - Report update to state that there are no signs of accreta. us David Kelly MD IMG OB US PROCEDURES Yomi brandy Result - Final from Last 3 Months Insurance PLAN
--- OUTSIDE RECORDS SUMMARY | 2024-06-14 15:33 | XMS_ITS | Encounter Summary ---
Author Organization [facility] Address [address] [place] [address] Phone Care Team Providers Care Supervisor Quilting Name Role Phone Natali Lo MD Primary Care Provider Unavailabl e Encounter Details Date Type Department Care Team (Late st Contact Info) Description 03/05/2013 Documentation [facility] [place] Family Medicine [facility] [place] [address] Family Medicine, Physician [facility] [place], [place] [id number] Social History Tobacco Use Types Packs/Day Years [...] on filedocumented in this encounter Care Teams Supervisor Quilting Relationship Specialty Start Date End Date Natali Lo MD PCP - General 11/05/16 documented as of this encounter
--- OUTSIDE RECORDS SUMMARY | 2024-06-14 15:33 | XMS_ITS | Clinical Summary ---
Author Organization [facility] Address [address] [place] [address] Phone Care Team Providers Care Stem Assembler Name Role Phone Natali Lo MD Primary Care Provider Unavailabl e Allergies Active Allergy Reactions Criticality Noted Date Comments Aspirin 05/06/2017 Medications No known medications Active Problems Problem Noted Date Diagnosed Date Mild intermittent asthma without complication Immunizations Immunization Administration Dates Next Due DTaP 5 10/11/2000, 9,04/05/1997, 997,1996 H1N1 02/04/2009 HPV, Quadrivalent 02/09/2011,02/05/2010,02/05/20 09 Hep A, Adult 11/25/2015 Hep A, ped/adol 08/22/2013 Hep B, ped/adol 04/05/1997,01/30/1997,1996 Hib (PRP-T) 04/15/1998, 8,01/30/1997, 997 IPV 10/13/2000, 8,01/30/1997, 997 Influenza Split 02/09/2011,02/05/2010 Influenza, injectable, trivalent 02/05/2008 MMR 10/11/2000,10/08/1997 Meningococcal Conj (Menactra) MCV4P 11/25/2015,1 04/06/2008 Tdap 02/04/2009 Varicella 10/11/2000 Family History Medical History Relation Name Comments No Known Problems Brother zaam Asthma Father Migraines Mother anastacia Figueroa Hyperlipidemia Other Relation Name Status Comments Brother azam Alive Brother: Alive and well Father Alive Father: Asthma Mother anastacia Figueroa Alive Mother: Alive a nd well, Migraines Other Family history of Hyperlipidemia Social History Tobacco Use Types Packs/Day Years Used Date Smoking Tobacco: Never Comments:Never smoker Comments No Sex and Gender Information Value Date Recorded Sex Assigned at Not on file Legal Sex Female 5:20 PM EDT Gender Identity Not on file Sexual Orientation Not on file Last Filed Vital Signs Vital Sign Reading Time Taken Comments Blood Pressure 120/83 05/06/2017 3:43 PM EST Pulse 80 05/06/2017 3:43 PM EST Temperature 36.6 ??C (97.9 ??F) 05/06/2017 3:43 PM ES T Respiratory Rate - - Oxygen Saturation - - Inhaled Oxygen Concentration - - Weight 60.7 kg (133 lb 12.8 oz) 05/06/2017 3:43 PM EST Height 165.1 cm (5' 5 ) 02/20/2016 12:0 0 AM EST Body Mass Index 22.27 02/20/2016 12:00 AM EST Plan of Treatment Health Maintenance Due Date Last Done Comments Varicella Vaccines (2 of 2 - 2-dose childhood series) 01/03/2001 10/11/2000 DTaP,Tdap,and Td Vaccines (7 - Td or Tdap) 02/04/2019 02/04/2009, 10/11/2000, 04/10/1998, Additional history exists Influenza Vaccines (#1) 2023 02/10/20 11, 02/05/2010, 02/05/2008 COVID-19 Vaccine ( season) 2023 Hepatitis B Vaccines Completed 04/05/1997, 01/30/1997, 1996 HIB Vaccines Completed 04/15/1998, 11/1997, 01/30/1997, Additional history exists MMR Vaccines Completed 10/11/2000, 10/08/1997 IPV Vaccines Completed 10/13/2000, 11/1997, 01/30/1997, Additional history exists HPV Vaccines Completed 02/09/2011, 01/26, 02/04/2009 Hepatitis A Vaccines Completed 11/25/2015, 08/23/19 14 Meningococcal Vaccine Aged Out 11/25/2015, 009 No longer eligible based on patient's age to complete this topic Men B Vaccine Aged Out No longer elig ible based on patient's age to complete this topic Pneumococcal Vaccine Aged Out No long er eligible based on patient's age to complete this topic Procedures * Due to [place] [employer] law, this organization might not be sharing sensitive test results. Procedure Name Priority Date/Time Associated Diagnosis Comments CHLAMYDIA AND GONORRHEA, AMPLIFIED Routine 05/06/2017 5:04 PM EST Acute back pain, unspecified back location, unspecified back pain laterality from Last 3 Months or Most Recently Relevant to Health Maintenance Results * Due to [place] [employer] law, this organization might not be sharing sensitive test results. * Chlamydia and Gonorrhoea, Amplified (05/06/2017 5:04 PM EST) Chlamydia Trachomatis, DNA Probe NEGATIVE (NEG) [facility] Comment: No Chlamydia Trachomatis RNA detected in this patient's sample ? (REFERENCE RANGE/NORMAL VALUE: NOT DETECTED) ? Note: This test uses crabbing machine operator- mediated amplification method to detect rRNA from C. Trachomatis URINE GC AMP PROBE NEGATIVE (NEG) [facility] Comment: No Neisseria Gonorrhoeae RNA detected in this patient's sample ? (REFERENCE RANGE/NORMAL VALUE: NOT DETECTED) ? NOTE: This test uses crabbing machine operator-mediated amplification method to detect rRNA from N.Gonorrhoeae. A negative result does not preclude infection. In the case of a negative urine result, testing of an endocervical(female) or urethral (male) specimen is recommended if there is high clinical suspicion of infection. Due to very high sensitivity of Nucleic Acid Amplification Test, false positive results may occur. Therefore, specimen handling is extremely important. In patients in whom the disease is unlikely, additional sample for testing should be considered after an initial positive result. The performance characteristics of this test have not been evaluated in children. The Aptima Combo2 assay is not intended for the evaluation of suspected sexual abuse or for other medico-legal indications. The ordering provider should assess if the patient had consensual sex without risk of sexual abuse. Consult the [facility] if needed. Contact phone number . Therapeutic failure or success cannot be determined with the Aptima Combo2 assay since nucleic acid may persist following appropriate antimicrobial therapy. The Centers for Disease Control and Prevention (CDC) recommends confirmatory retesting using culture or a different nucleic acid amplification test when positive results occur, if indicated. Testing performed or reported by [facility], a Service of [facility], [address] [place] [address] CLIA ??[id number] Joe Sibley MD, PhD, A&P Technician Urine 05/06/2017 5:04 PM EST 05/07/2017 12:06 AM EST us Natali Lo MD LAB MICROBIOLOGY - GENERAL ORDER JOSE Final Result [facility] from Last 3 Months or Most Recently Relevant to Health Maintenance [place] [address] [place] [address] [facility] NON [facility] Care Teams Stem Assembler Relationship Specialty Start Date End Date Natali Lo MD PCP - General 11/05/16
--- OUTSIDE RECORDS SUMMARY | 2024-06-14 15:33 | XMS_ITS | Encounter Summary ---
Author Organization [facility] Address [address] [place] [address] Phone Care Team Providers Care Field Kiln Burner Name Role Phone Natali Lo MD Primary Care Provider Unavailabl e Encounter Details Date Type Department Care Team (Late st Contact Info) Description 11/23/2011 Documentation [facility] [place] Family [place] [address] Family Medicine, Physician [facility] [place] [id number] Social History Tobacco Use Types Packs/Day Years [...] on filedocumented in this encounter Care Teams Field Kiln Burner Relationship Specialty Start Date End Date Natali Lo MD PCP - General 11/05/16 documented as of this encounter
== END 2024-06-14 14:06 | disposition home or self-care (01) ==
LOC: HO.HMCC 13:05
PROVIDERS: PCP Internal Medicine; Visit Provider Internal Medicine
DX: Z00.00 Encounter for general adult medical examination without abnormal findings (principal)

== ENCOUNTER 2024-11-22 12:39 | Outpatient (AMB) | payer OTHER, SELFPAY ==
--- NOTE | 2024-11-22 12:40 | MHC.PC.OV ---
Vital Signs 11/22/24 12:50 Height 5 ft 3.5 in Weight 169 lb BMI 29.5 BP 110/78 Blood Pressure Location Lt brachial Position Sitting Respiration 18 Pulse 82 Pulse Source Pulse Oximeter Temp 98.8 F Temp Source Oral Pulse Oximetry (%) 98 Oxygen Delivery Method Room Air Intake Visit Reasons: Referral Intake Note: Pt is here today for a sikc visit. Pt c/o cyst under her L armpit and now its starting under her R armpit. Allergies aspirin (ASPIRIN) Allergy (Unknown, Verified 11/22/24 12:53) RASH Medication List - Last Reconciled 11/22/24 by Jonna Mosher MD vit [id number] 28 mg iron- 800 mcg (Classic ) 1 tab PO DAILY Tobacco use date assessed: 11/22/24 Dental Screening Dental Screen Date: 11/22/24 Did you have a dental visit in the last 12 months?: Yes Did you have a dental problem in the last 6 months where you did not have access to dental care?: No Was dental information given to patient?: Patient has dentist HPI Referral HPI Details Patient presents complaining of the pain and swelling under right armpit radiating to right upper extremity for one week. Patient is for the last 6 months. She denies any breast pain or swelling, fever chills weakness or numbness in extremities. [facility] Medical History Annual physical exam Vaginosis Chest pain Surgical History Hx of section No pertinent past surgical history Family History Father TIA (transient ischemic attack) Mother Prediabetes Social History Household Members Other:: 2 children, 2 yr and 1 month girl, Housing: Apartment Alcohol intake: never Patient Tobacco Use Status: Never used Tobacco e-Cigarette/Vaping Use: Never Used Current occupational status: unemployed Gender identity: Female Cognitive needs: No Hearing needs: No Vision needs: Yes Female Reproductive History Menstrual Age of Menarche: 13 Questionnaire PHQ-9 Over the last 2 weeks, how often have you been bothered by any of the following problems? 1. Little interest or pleasure in doing things: not at all 2. Feeling down, depressed, or hopeless: not at all 3. Trouble falling or staying asleep, or sleeping too much: not at all 4. Feeling tired or having little energy: not at all 5. Poor appetite or overeating: not at all 6. Feeling bad about yourself - or that you are a failure or have let yourself or your family down: not at all 7. Trouble concentrating on things, such as reading the newspaper or watching television: not at all 8. Moving or speaking so slowly that other people could have noticed. Or the opposite - being so fidgety or restless that you have been moving around a lot more than usual: not at all 9. Thoughts that you would be better off or of hurting yourself in some way: not at all Total score: 0 Depression Screening Interpretation: Negative Depression Screening Done: Yes 57353 - PHQ-9 Billing: Yes Source: Developed by Drs. Marquis Swenson, Dede Elaine, Edmundo Hammond and colleagues, with an educational lester from [employer]. Thrive Questionnaire Date Thrive assessed: 11/22/24 I am a: Patient What is your living situation today?: I have a steady place to live Within the past 12 months, did the food you bought not last and you didn't have the money to get more?: Often true Within the past 12 months, did you worry whether your food would run out before you got money to buy more?: Never true Do you have trouble paying for medicines?: No Do you have trouble getting transportation to medical appointments?: No Do you have trouble paying your heating and electricity bill?: No Do you have trouble taking care of your child, family member or friend?: No Do you have trouble with day-to-day activities such as bathing, preparing meals, shopping, managing finances, etc.?: No Are you currently unemployed and looking for a job?: No Are you interested in more education?: No Please select the resources that you would like help with: None Currently or been in a relationship where the following occur: No concerns reported THRIVE Score: 1 AUDIT C Alcohol Use Questionnaire (AUDIT-C) 1. How often do you have a drink containing alcohol?: Never 3. How often do you have six or more drinks on one occasion?: Never Total Score: 0 JULIET-7 AMB Questionnaire JULIET-7 Date JULIET - 7 assessed: 11/22/24 Feeling nervous, anxious, or on edge: 0 = Not at all Not being able to stop or control worryin = Not at all Worrying too much about different things: 0 = Not at all Trouble relaxin = Not at all Being so restless that it is hard to sit still: 0 = Not at all Becoming easily annoyed or irritable: 0 = Not at all Feeling afraid as if something awful might happen: 0 = Not at all Total JULIET-7 score (0-4 normal; 5-9 mild; 10-14 moderate; 15-21 severe): 0 Source: Developed by Drs. Marquis Swenson, Dede Elaine, Edmundo Hammond and colleagues, with an educational lester from [employer]. JULIET-7 Assessment Billing JULIET-7 Assessment Tool: JULIET-7 Assessment 94632 Review of Systems Const All systems reviewed & are unremarkable except as noted in HPI and below ENT Reports no additional complaints Resp Reports no additional complaints GI Reports no additional complaints Reports no additional complaints Musc Reports no additional complaints Physical exam (Primary Care) Vital Signs: Last Vital Signs Temp 98.8 F 11/22/24 12:50 Pulse 82 11/22/24 12:50 Resp 18 11/22/24 12:50 BP 110/78 11/22/24 12:50 Pulse Ox 98 11/22/24 12:50 Oxygen Delivery Method Room Air 11/22/24 12:50 BMI result Body Mass Index 29.5 Tobacco/Smoking Status: Tobacco use Status Tobacco use date assessed 11/22/24 11/22/24 12:57 Patient Tobacco Use Status Never used Tobacco 11/22/24 12:40 e-Cigarette/Vaping Use Never Used 11/22/24 12:40 PHQ-9: PHQ-9 Score PHQ-9: Total score 0 11/22/24 12:57 Depression Screening Interpretation: Negative Thrive Assessment: Date of Thrive Assessment Date Thrive assessed 11/22/24 11/22/24 12:57 Currently or been in a relationship where the following occur: No concerns reported Const General: no acute distress HENMT Head: Yes normal to inspection Neck Neck: Yes supple Resp Effort & Inspection: normal respiratory effort Auscultation: clear to auscultation bilaterally Cardio Rhythm: regular rhythm Heart sounds: S1 normal heart sound present and S2 normal heart sound present Extrem Other: There is a palpable fullness and tenderness no erythema or warmth in the right axillary region, there is a right upper inner extremity tenderness slight erythema no warmth or skin changes Coding Level of Care Code Est Pt Level 3 (84756) Diagnoses Swelling of right upper extremity M79.89 Additional Codes JULIET-7 Assessment Billing - JULIET-7 Assessment Tool: JULIET-7 Assessment 39903 ([id number]) PHQ-9 - 75589 - PHQ-9 Billing: Yes ([id number]) Assessment & Plan Assessment & Plan (1) Swelling of right upper extremity: Code(s): M79.89 - Other specified soft tissue disorders Category: Medical Plan: Obtain right upper extremity ultrasound to rule out DVT and evaluate for axillary lymphadenopathy Orders: Orders US venous duplex UE RT Today M79.89 - Other specified soft tissue disorders
[2024-11-22 12:50] VITALS: BP 110/78; PULSE 82; RESP 18; TEMP 37.1; O2SAT 98; BMI 29.5
--- OUTSIDE RECORDS SUMMARY | 2024-11-22 13:18 | XMS_ITS | Clinical Summary ---
Author Organization [facility] Address [address] [place] [address] Phone Care Team Providers Care Field Agronomist Name Role Phone Natali Lo MD Primary [...] Relation Name Comments No Known Problems Brother azam Asthma Father Migraines Mother anastacia Figueroa Hyperlipidemia [...] 80 05/06/2017 3:43 PM EST Temperature 36.6 C (97.9 F) 05/06/2017 3:43 PM EST Respiratory Rate - - Oxygen Saturation - - Inhaled Oxygen Concentration - - Weight 60.7 kg (133 lb 12.8 oz) 05/06/2017 3:43 PM EST Height 165.1 cm (5' 5 ) 02/20/2016 12:0 0 AM EST Body Mass Index 22.27 02/20/2016 12:00 AM EST Plan of Treatment Health Maintenance Due Date Last Done Comments Varicella Vaccines (2 of 2 - 2-dose childhood series) 03/04/2009 10/11/2000 DTaP,Tdap,and Td Vaccines (7 - Td or Tdap) 02/04/2019 02/04/2009, 10/11/2000, 04/10/1998, Additional history exists COVID-19 Vaccine ( season) 2023 Influenza Vaccines (#1) 2024 02/10/20 11, 02/05/2010, 02/05/2008 Hepatitis B Vaccines Completed 04/05/1997, 01/30/1997, 1996 [...] complete this topic Procedures * Due to [place] state law, this organization might not be sharing sensitive test results. Procedure Name Priority Date/Time Associated Diagnosis Comments CHLAMYDIA AND GONORRHEA, AMPLIFIED Routine 05/06/2017 5:04 PM EST Acute back pain, unspecified back location, unspecified back pain laterality from Last 3 Months or Most Recently Relevant to Health Maintenance Results * Due to [facility] law, this organization might not be sharing sensitive test results. * Chlamydia and Gonorrhoea, Amplified (05/06/2017 5:04 PM EST) Chlamydia Trachomatis, DNA Probe NEGATIVE (NEG) [facility] Comment: No Chlamydia Trachomatis RNA detected in this patient's sample (REFERENCE RANGE/NORMAL VALUE: NOT DETECTED) Note: This test uses applied statistician- mediated amplification method to detect rRNA from C. Trachomatis URINE GC AMP PROBE NEGATIVE (NEG) [facility] Comment: No Neisseria Gonorrhoeae RNA detected in this patient's sample (REFERENCE RANGE/NORMAL VALUE: NOT DETECTED) NOTE: This test uses applied statistician-mediated amplification method to detect rRNA from N.Gonorrhoeae. [...] risk of sexual abuse. Consult the [facility] if needed. Contact phone number . Therapeutic failure or success cannot be determined with the Aptima Combo2 assay since nucleic acid may persist following appropriate antimicrobial therapy. The Centers for Disease Control and Prevention (CDC) recommends confirmatory retesting using culture or a different nucleic acid amplification test when positive results occur, if indicated. Testing performed or reported by [facility], a Service of [facility], [facility] [place] [address] CLIA [id number] Joe Sibley MD, PhD, Supervisor Hydrochloric Area Urine 05/06/2017 5:04 PM EST 05/07/2017 12:06 AM EST us Natali Lo MD LAB MICROBIOLOGY - GENERAL ORDER JOSE Final Result [facility] from Last 3 Months or Most Recently Relevant to Health Maintenance Insurance [address] [place] [address] [facility] NON [facility] Care Teams Field Agronomist Relationship Specialty Start Date End Date Natali Lo MD PCP - General 11/05/16
--- OUTSIDE RECORDS SUMMARY | 2024-11-22 13:18 | XMS_ITS | Encounter Summary ---
Author Organization [facility] Address [address] [place] [address] Phone Care Team Providers Care Warping Mill Operator Name Role Phone Jonna Mosher MD Primary Care Provider [phone] Encounter Details Date Type Department Care Team ([facility] st Contact Info) Description 05/15/2024 Procedure [facility] L[facility]D Procedures [address] [place] [address] Social History Tobacco Use Types Packs/Day Years Used Date Smoking Tobacco: Never Smokeless Tobacco: Never Alcohol Use Standard Drinks/Week Comments Not Currently 0 (1 standard drink = 0.6 oz pur e alcohol) Education Answer Date Recorded Are you interested in more education? Not on jaime e 07/24/2022 Are you concerned about learning? Not on file 07/24/2022 No 07/24/2022 No 07/24/2022 Food Answer Date Recorded Within the past 6 months we worried whether our food would run out before we got money to buy more. Never True 05/15/2024 Within the past 6 months the food we bought just didn't last and we didn't have enough money to get more. Never True Residential Stability Answer Date Recor ded What is your housing situation today? I have vinny sing 05/15/2024 How many times have you move d in the past 12 months? Zero (I did not move) 05/15/2024 Paying for Meds Answer Date Recorded Do you have trouble paying for medicines? No 05/15/2024 Paying Utility Bills Answer Date Record ed Do you have trouble paying your heating or elect ricity bill? No 05/15/2024 Transportation Answer Date Recorded Has the lack of transportati on kept you from medical appointments or from getting medications? No 05/15/2024 Digital Access Answer Date Recorded No 05/15/2024 Yes 05/15/2024 Do you have reliable internet access at home? Ye s 05/15/2024 Do you have a device (e.g., phone, tablet, computer) with a working camera? Yes 05/15/2024 Intimate Partner Violence Answer Date R ecorded Are you denied basic needs s uch as food, clothing, or medical care? No 05/15/2024 In the past 12 months have y ou been in a relationship with a person who hurts, threatens, or tries to control you? No 05/15/2024 Are you denied basic needs s uch as food, clothing, or medical care? No 05/15/2024 In the past 12 months have y ou been in a relationship with a person who hurts, threatens, or tries to control you? No 05/15/2024 Comments No Sex and Gender Information Value Date Recorded Sex Assigned at Female 03/23/2024 12:46 PM EST Legal Sex Female 8:00 PM EST Gender Identity Female 03/23/2024 12:46 PM EST Sexual Orientation Straight 03/23/2024 12 :46 PM EST documented as of this encounter Functional Status * Calculated C-SSRS Risk Score (Lifetime/Recent) Answer Date of Assessment Author No Risk Indicated 05/15/2024 7:19 AM Mayela Jacobson RN * [place] Suicide Severity Rating Scale (Screener/Recent Self-Report) Question Answer Date of Assessment Author 1. Wish to be (Past 1 Month) No 025 7:19 AM Mayela Jacobson RN 2. Non-Specific Active Suici pako Thoughts (Past 1 Month) No 05/15/2024 7:19 AM Da Jacobson RN 6. Suicidal Behavior (Lifetime) No 7:19 AM Mayela Jacobson RN documented as of this encounter Plan of Treatment Not on file documented as of this encounter Visit Diagnoses Not on filedocumented in this encounter Care Teams Warping Mill Operator Relationship Specialty Start Date End Date Jonna Mosher MD [address] [place] [address] PCP - General 05/21/22 documented as of this encounter Additional Source Comments The information contained in this document represents components of the legal health record. It is not the complete legal health record.[facility]
--- OUTSIDE RECORDS SUMMARY | 2024-11-22 13:18 | XMS_ITS | Encounter Summary ---
Author Organization [facility] Address [address] [place] [address] Phone Care Team Providers Care International Accountant Name Role Phone Natali Lo MD Primary Care Provider Unavailabl e Encounter Details Date Type Department Care Team (Late st Contact Info) Description 03/05/2013 Documentation [facility] Family [place] [address] Family Medicine, Physician [facility] [place], [place] [id number] Social History Tobacco Use Types Packs/Day Years [...] on filedocumented in this encounter Care Teams International Accountant Relationship Specialty Start Date End Date Natali Lo MD PCP - General 11/05/16 documented as of this encounter
--- OUTSIDE RECORDS SUMMARY | 2024-11-22 13:18 | XMS_ITS | Clinical Summary ---
Author Organization [facility] Address [address] [place] [address] Phone Care Team Providers Care Perioperative Tech Name Role Phone Jonna Mosher MD Primary Care Provider [phone] Allergies Active Allergy Reactions Criticality Noted Date Comments Adhesive Rash with Blisters High 06/05/2024 Aspirin Hives 05/21/2022 Medications vitamins with ferrous fumarate- folic acid 28 mg iron- 800 mcg Tab Take 1 tablet by mouth daily. 30 tablet 3 Active simethicone (MYLICON) 80 mg chewable tablet Take 1 tablet (80 mg total) by mouth every 6 (six) hours as needed (for gas/flatus). 30 tablet 1 5 Active white petrolatum (AQUAPHOR) 41 % Oint Apply topically as needed (blisters on incision). 5 Active norethindrone (MICRONOR) 0.35 mg tablet Take 1 tablet (0.35 mg total) by mouth daily. 84 tablet 4 5 Active acetaminophen (TYLENOL) 325 mg tablet Take 3 tablets (975 mg total) by mouth every 6 (six) hours as needed for pain (specific location in comments). 90 tablet 1 5 Active Additional Information Patient not taking.Reported on 07/03/2024 ibuprofen (ADVIL,MOTRIN) 600 MG tablet Take 1 tablet (600 mg total) by mouth every 6 (six) hours as needed for pain (specific location in comments). 30 tablet 1 5 Active Additional Information Patient not taking.Reported on 07/03/2024 docusate sodium (COLACE) 100 MG capsule Take 1 capsule (100 mg total) by mouth 2 (two) times a day. 90 capsule 1 Active polyethylene glycol (MIRALAX) 17 gram/dose powder Take 17 g by mouth daily. 289 g 1 5 Active Active Problems Problem Noted Date Diagnosed Date state 05/18/2024 History of section 05/18/2024 Normal , unspecified trimester 05/15/19 Request for sterilization 05/01/2024 Overview (05/01/2024): [facility] form signed 03/29/24 Assessment & Plan (05/01/2024 11:24 AM EST): We reviewed the surgical procedure for permanent sterilization (laparoscopic bilateral salpingectomy). Discussed that this procedure is irreversible, associated risks include bleeding, infection, damage to surrounding structures (uterus, ovaries), and regret. We discussed concurrent risk reduction for ovarian cancer with removal of both fallopian tubes. We reviewed alternatives including LARC (IUD, Nexplanon). Susanna is sure in her decision to proceed with sterilization, no life circumstances will change her mind. Herpes simplex infection of genitourinary system 03/23/2024 Overview (03/29/2024): Needs prophylaxis starting at 36 weeks Assessment & Plan (05/01/2024 11:13 AM EST): Valtrex previously prescribed. No signs/sx of outbreak. Supervision of high risk in third trim lindsay 03/23/2024 Overview (05/01/2024): SEVEN SISTERS screening low risk NIPT Baby ASA? no Rh pos GC/Chlam neg PAP none on file with [facility] or [facility], recommend PP Flu done COVID-19 * Hgb 12 GTT 115 Repeat RPR order placed but not drawn, will draw on admit Tdap per SS records, plan was to administer at 32 wks, not documented RSV per SS records, plan was to administer at 32 wks, not documented EPDS * PPBC bilat salpingectomy GBS * Infant Feeding Plan breast Assessment & Plan (03/23/2024 10:35 AM EST): S=d, no complaints, fm good, fh good Will send for level 2 anatomy given anterior placenta Tdap? Will need repeat RPR Previous delivery affecting 1 05/24/2023 Overview (05/01/2024): Desires repeat c/s with BS LEVEL 1 anatomy done at [facility] - Anterior placenta - no evidence of accreta, inferior placenta edge >4cm from LASHA on follow-up Level II (results in media) Resolved Problems Problem Noted Date Diagnosed Date Resolved Date Previous delivery a ffecting 03/23/2024 03/23/2024 Overview (03/23/2024): Desires repeat c/s with bs Primary was arrest disorder LEVEL 1 ANATOMY done - anterior placenta - no level 2 done Normal labor 05/21/2022 03/23/2024 Assessment & Plan (05/21/2022 8:40 PM EST): A: IUP at 41 6/7 weeks [place] Transfer from [facility] for Protracted labor and Pain Management Cat II tracing, overall reassuring P: Admit to CBC Continous EFM CBC, T&S Start IV and Bolus with LR Anesthesia called for epidural Dr Tang aware of pt and in house Will do VE once comfortable and make plan of care Family History Relation Status Comments Daughter 1 Alive Daughter 2 Alive Father Alive Mother Alive Social History Tobacco Use Types Packs/Day Years Used Date Smoking Tobacco: Never Smokeless Tobacco: Never Tobacco Cessation:Counseling Given: Not Answered Alcohol Use Standard Drinks/Week Comments Not Currently [...] your housing situation today? I have vinny martinez 05/15/2024 How many times have you move [...] Orientation Straight 03/23/2024 12 :46 PM EST Last Filed Vital Signs Vital Sign Reading Time Taken Comments Blood Pressure 120/82 07/03/2024 11:33 AM EDT Pulse 102 05/18/2024 11:06 AM EST Temperature 36.6 C (97.9 F) 05/18/2024 11:06 AM EST Respiratory Rate 18 05/18/2024 11:06 AM EST Oxygen Saturation 97% 05/18/2024 11:06 AM EST Inhaled Oxygen Concentration - - Weight 76.2 kg (168 lb) 07/03/2024 11:33 AM EDT Height 160 cm (5' 3 ) 05/15/2024 6:33 AM EST Body Mass Index 29.76 05/15/2024 6:33 AM EST Plan of Treatment Health Maintenance Due Date Last Done Comments DEPRESSION SCREENING 2008 PAP SMEAR 2017 Adult Td,Tdap Booster 02/04/2019 02/04/2009 COVID-19 VACCINE (2023-2 5 season) 2023 HEPATITIS C SCREENING Completed 09/22/2021 HIV ONE-TIME SCREENING (18-6 5 YEARS) Completed 09/22/2021 SMOKING STATUS SCREENING (On ce After 26 Yrs) Completed 03/29/2024 HEPATITIS A VACCINES Aged Out No long er eligible based on patient's age to complete this topic HIB VACCINES Aged Out No longer eligi ble based on patient's age to complete this topic MENINGOCOCCAL VACCINES (ACWY) Aged Out No longer eligible based on patient's age to complete this topic MENINGOCOCCAL VACCINES (B) Aged Out N o longer eligible based on patient's age to complete this topic PNEUMOCOCCAL VACCINES (0-49 years) Aged Out No longer eligible based on patient's age to complete this topic Medical Devices Not on file Procedures Procedure Name Priority Date/Time Associated Diagnosis Comments HEPATITIS C ANTIBODY, QUALITATIVE Routine 09/22/2021 from Last 3 Months or Most Recently Relevant to Health Maintenance Results * Hepatitis C antibody, qualitative (09/22/2021) Hepatitis C Antibody, qualitatitve - External Neg Historical Provider LAB BLOOD ORDERABLES Samina l Result from Last 3 Months or Most Recently Relevant to Health Maintenance Insurance [employer] [place] [address] [place] [address] [address] [address] [place] [id number] [employer] Advance Directives For more information, please contact: [phone] (9AM - 5PM [facility], Tuesday-Tuesday) Documents on File Type Date Recorded Patient Field Staff Expl anation Healthcare Proxy 05/22/2024 11:43 AM * Full Code (Latest Code Status on File) Date Activated Date Inactivated Comments 05/15/2024 9:47 AM Question Answer Comments Code Status Confirmed With: Patient * Full Code Date Activated Date Inactivated Comments 05/15/2024 6:16 AM 05/15/2024 9:44 AM Question Answer Comments Code Status Confirmed With: Patient * Full Code Date Activated Date Inactivated Comments 05/22/2022 1:35 AM 05/15/2024 6:16 AM Question Answer Comments Code Status Confirmed With: Patient * Full Code Date Activated Date Inactivated Comments 05/21/2022 8:12 PM 05/22/2022 1:33 AM Question Answer Comments Code Status Confirmed With: Patient Care Teams Perioperative Tech Relationship Specialty [place] [address] [place] [address] [place] [address] PCP - General 05/21/22 Additional Source Comments The information contained in this document represents components of the legal health record. It is not the complete legal health record.[facility]
--- OUTSIDE RECORDS SUMMARY | 2024-11-22 13:18 | XMS_ITS | Encounter Summary ---
Author Organization [facility] Address [address] [place] [address] Phone Care Team Providers Care Sheet Folder Name Role Phone Natali Lo MD Primary Care Provider Unavailabl e Encounter Details Date Type Department Care Team (Late st Contact Info) Description 07/26/[address] [facility] [place] Family Medicine [facility] [place] [address] Family Medicine, Physician [facility] [place] [address] Social History Tobacco Use Types Packs/Day Years [...] on filedocumented in this encounter Care Teams Sheet Folder Relationship Specialty Start Date End Date Natali Lo MD PCP - General 11/05/16 documented as of this encounter
--- OUTSIDE RECORDS SUMMARY | 2024-11-22 13:18 | XMS_ITS | Encounter Summary ---
Author Organization [facility] Address [address] [place] [address] Phone Care Team Providers Care Button Cutting Machine Operator Name Role Phone Natali Lo MD Primary Care Provider Unavailabl e Encounter Details Date Type Department Care Team (Late st Contact Info) Description 04/21/2012 Documentation [facility] [place] [address] Family Medicine, Physician [facility] [place] [id number] Social History Tobacco Use Types Packs/Day Years [...] on filedocumented in this encounter Care Teams Button Cutting Machine Operator Relationship Specialty Start Date End Date Natali Lo MD PCP - General 11/05/16 documented as of this encounter
--- OUTSIDE RECORDS SUMMARY | 2024-11-22 13:18 | XMS_ITS | Encounter Summary ---
Author Organization [facility] Address [address] [place] [address] Phone Care Team Providers Care Manager Lan Name Role Phone Natali Lo MD Primary Care Provider Unavailabl e Encounter Details Date Type Department Care Team (Late st Contact Info) Description 01/27/2017 Conversion Encounter [facility] - [address] [address] Social History Tobacco Use Types Packs/Day Years [...] on filedocumented in this encounter Care Teams Manager Lan Relationship Specialty Start Date End Date Natali Lo MD PCP - General 11/05/16 documented as of this encounter
--- OUTSIDE RECORDS SUMMARY | 2024-11-22 13:18 | XMS_ITS | Encounter Summary ---
Author Organization [facility] Address [address] [place] [address] Phone Care Team Providers Care Product Representative Name Role Phone Natali Lo MD Primary Care Provider Unavailabl e Encounter Details Date Type Department Care Team (Late st Contact Info) Description 11/23/2011 Documentation [facility] [place] [address] Family Medicine, Physician [facility] [place] [id number] Social History Tobacco Use Types Packs/Day Years [...] on filedocumented in this encounter Care Teams Product Representative Relationship Specialty Start Date End Date Natali Lo MD PCP - General 11/05/16 documented as of this encounter
--- OUTSIDE RECORDS SUMMARY | 2024-11-22 13:18 | XMS_ITS | Encounter Summary ---
Author Organization [facility] Address [address] [place] [address] Phone Care Team Providers Care Map Maker Name Role Phone Jonna Mosher MD Primary Care Provider [phone] Encounter Details Date Type Department Care Team ([facility] st Contact Info) Description 05/15/2024 Procedure Pass [facility] L&D Procedures [address] [place] [address] Social History Tobacco Use Types Packs/Day Years [...] 05/15/2024 7:19 AM Mayela Jacobson RN * [place] Suicide Severity Rating Scale (Screener/Recent Self-Report) Question [...] on filedocumented in this encounter Care Teams Map Maker Relationship Specialty Start Date End Date Jonna Mosher MD [address] [facility] [address] PCP - General 05/21/22 documented as of this encounter Additional Source Comments The information contained in this document represents components of the legal health record. It is not the complete legal health record.[facility]
--- OUTSIDE RECORDS SUMMARY | 2024-11-22 13:18 | XMS_ITS | Encounter Summary ---
Author Organization [facility] Address [address] [place] [address] Phone Care Team Providers Care All Around Patternmaker Name Role Phone Jonna Mosher MD Primary Care Provider [phone] Encounter Details Date Type Department Care Team ([facility] st Contact Info) Description 05/22/2022 Procedure Pass [facility] L&D Procedures [address] [place] [address] Social History Tobacco Use Types Packs/Day Years Used Date Smoking Tobacco: Never Assessed Intimate Partner Violence Answer Date R ecorded Are you denied basic needs s uch as food, clothing, or medical care? No 05/21/2022 In the past 12 months have y ou been in a relationship with a person who hurts, threatens, or tries to control you? No 05/21/2022 Are you denied basic needs s uch as food, clothing, or medical care? No 05/21/2022 In the past 12 months have y ou been in a relationship with a person who hurts, threatens, or tries to control you? No 05/21/2022 Comments Yes Sex and Gender Information Value Date Recorded Sex Assigned at Female 03/23/2024 12:46 PM EST Legal Sex Female 8:00 PM EST Gender Identity Female 03/23/2024 12:46 PM EST Sexual Orientation Straight 03/23/2024 12 :46 PM EST documented as of this encounter Plan of Treatment Not on file documented as of this encounter Visit Diagnoses Not on filedocumented in this encounter Care Teams All Around Patternmaker Relationship Specialty Start Date End Date Jonna Mosher MD [address] [facility] [place] [address] PCP - General 05/21/22 documented as of this encounter Additional Source Comments The information contained in this document represents components of the legal health record. It is not the complete legal health record.[facility]
--- OUTSIDE RECORDS SUMMARY | 2024-11-22 13:18 | XMS_ITS | Clinical Summary ---
Author Organization [facility] [address] [place] [address] [place] [phone] Phone Care Team Providers Care Leather Tanner Name Role Phone Unavailable Primary Care Provider Unavailabl e Social History Tobacco Use Types Packs/Day Years [...] 5 Years) and At-Risk Patients (6 to 49 Years) (1 of 2 - PCV) 09/28/2015 Cervical Cancer Screening: Pap Smear 2017 DTaP,Tdap,and Td Vaccines (7 - Td or Tdap) 02/04/2019 02/04/2009, 10/11/2000, 04/10/1998, Additional history exists COVID-19 Vaccine ( season) 2023 Depression Screening 03/28/2024 HIV Screening 04/09/2024 Hepatitis C Screening 04/09/2024 Social Influencers of Health Screening 04/09/2024 Influenza Vaccine (#1) 2024 1, 02/05/2010, 02/04/2009, Additional history exists Hepatitis B Vaccines Completed 04/05/1997, 01/30/1997, 1996 [...] age to complete this topic Meningococcal B Vaccine Aged Out No l onger eligible based on patient's age to complete this topic RSV Immunization Patients Under 20 months Aged Out No longer eligible based on patient's age to complete this topic Insurance PLAN
== END 2024-11-22 13:41 | disposition home or self-care (01) ==
LOC: HO.HMCC 12:40
PROVIDERS: PCP Internal Medicine; Visit Provider Internal Medicine
DX: M79.89 Other specified soft tissue disorders (principal)

== ENCOUNTER → 2024-11-22 12:39 | Outpatient (BNVA) | payer OTHER, SELFPAY | PROVIDERS: PCP Internal Medicine; Visit Provider Internal Medicine | DX: M79.89 Other specified soft tissue disorders (principal) | CPT/HCPCS: 96127; 99212 ==

== ENCOUNTER 2024-12-14 10:08 | Outpatient (REF) | payer OTHER, SELFPAY ==
--- NOTE | ~2024-12-14 | US_ITS ---
EXAMINATION: US TRIPLEX UPPER EXTREMITY, RIGHT CLINICAL INFORMATION: Right axillary pain, lumps felt medial upper arm COMPARISON: None available. TECHNIQUE: Color-flow triplex imaging with spectral analysis and compression Doppler was performed on the right upper extremity. FINDINGS: The right internal jugular, subclavian, and axillary veins are patent and free of thrombus. The imaged segment of the right brachiocephalic vein is patent. Spectral doppler waveforms are normal. The brachial, basilic, cephalic, radial, and ulnar veins are patent and compressible. US/US venous duplex UE RT IMPRESSION: No evidence of deep venous thrombosis involving the right upper extremity. No mass or fluid collection is demonstrated by ultrasound in the region where the patient indicates that they feel a mass. Electronically signed by: Wyatt Navarro MD 12/14/2024 12:05 PM EDT
--- OUTSIDE RECORDS SUMMARY | 2024-12-14 10:42 | XMS_ITS | Encounter Summary ---
Author Organization [facility] Address [address] [place] [address] Phone Care Team Providers Care Medical Technicians Name Role Phone Natali Lo MD Primary Care Provider Unavailabl e Encounter Details Date Type Department Care Team (Late st Contact Info) Description 03/05/2013 Documentation [facility] [place] Family Medicine [facility] [place] [address] Family Medicine, Physician [facility] [place] [id number] Social History Tobacco Use Types Packs/Day Years [...] on filedocumented in this encounter Care Teams Medical Technicians Relationship Specialty Start Date End Date Natali Lo MD PCP - General 11/05/16 documented as of this encounter
--- OUTSIDE RECORDS SUMMARY | 2024-12-14 10:42 | XMS_ITS | Clinical Summary ---
Author Organization [facility] Address [address] [place] [address] Phone Care Team Providers Care Secondary School Principal Name Role Phone Jonna Mosher MD Primary Care Provider [phone] Allergies Active Allergy Reactions Criticality Noted Date [...] 05/15/19 Request for sterilization 05/01/2024 Overview (05/01/2024): [facility] form signed 03/29/24 Assessment & Plan (05/01/2024 [...] with BS LEVEL 1 anatomy done at [facility] - Anterior placenta - no evidence [...] at 41 6/7 weeks GA Transfer from [facility] for Protracted labor and Pain Management Cat [...] your housing situation today? I have vinny matrinez 05/15/2024 How many times have you move [...] SMEAR 2017 Adult Td,Tdap Booster 02/04/2019 02/04/2009 INFLUENZA VACCINE (#1) 2024 COVID-19 VACCINE (1 - 2023-2 5 season) 2024 HEPATITIS C SCREENING Completed 09/22/2021 HIV ONE-TIME [...] Most Recently Relevant to Health Maintenance Insurance [address] [place] [address] [facility] [place] [address] [place] [address] [place] [address] [place] [address] [place] [address] [place] [address] A[employer] [facility] [employer] Advance Directives For more information, please contact: [phone] (9AM - 5PM [facility], Tuesday-Tuesday) Documents on File Type Date Recorded Patient Banquet Kitchen Supervisor Expl anation Healthcare Proxy 05/22/2024 11:43 AM [...] Code Status Confirmed With: Patient Care Teams Secondary School Principal Relationship Specialty Start Date End Date Jonna Mosher MD [facility] [place] [address] PCP - General 05/21/22 Additional Source Comments The information contained in this document represents components of the legal health record. It is not the complete legal health record.[facility]
--- OUTSIDE RECORDS SUMMARY | 2024-12-14 10:42 | XMS_ITS | Encounter Summary ---
Author Organization [facility] Address [address] [place] [address] Phone Care Team Providers Care Spring Salvage Worker Name Role Phone Jonna Mosher MD Primary Care Provider [phone] Encounter Details Date Type Department Care Team ([facility] st Contact Info) Description 05/15/2024 Procedure Pass [facility] L&D Procedures [address] [place] [address] Social History Tobacco Use Types Packs/Day Years [...] 05/15/2024 7:19 AM Mayela Jacobson RN * [place] Suicide Severity Rating Scale (Screener/Recent Self-Report) Question [...] on filedocumented in this encounter Care Teams Spring Salvage Worker Relationship Specialty Start Date End Date Jonna Mosher MD [address] [place] [address] PCP - General 05/21/22 documented as of this encounter Additional Source Comments The information contained in this document represents components of the legal health record. It is not the complete legal health record.[facility]
--- OUTSIDE RECORDS SUMMARY | 2024-12-14 10:42 | XMS_ITS | Encounter Summary ---
Author Organization [facility] Address [address] [place] [address] Phone Care Team Providers Care Vehicle Dismantler Name Role Phone Jonna Mosher MD Primary Care Provider [phone] Encounter Details Date Type Department Care Team ([facility] st Contact Info) Description 05/15/2024 Procedure Pass [facility] L&D Procedures [address] [place] [address] Social History Tobacco Use Types Packs/Day Years [...] 05/15/2024 7:19 AM Mayela Jacobson RN * [place] Suicide Severity Rating Scale (Screener/Recent Self-Report) Question [...] on filedocumented in this encounter Care Teams Vehicle Dismantler Relationship Specialty Start Date End Date Jonna Mosher MD [address] [facility] [place] [address] PCP - General 05/21/22 documented as of this encounter Additional Source Comments The information contained in this document represents components of the legal health record. It is not the complete legal health record.[facility]
--- OUTSIDE RECORDS SUMMARY | 2024-12-14 10:42 | XMS_ITS | Encounter Summary ---
Author Organization [facility] Address [address] [place] [address] Phone Care Team Providers Care Appraiser Name Role Phone Jonna Mosher MD Primary Care Provider [phone] Encounter Details Date Type Department Care Team ([facility] st Contact Info) Description 05/22/2022 Procedure Pass [facility] L&D Procedures [address] [place] [address] Social History Tobacco Use Types Packs/Day Years [...] on filedocumented in this encounter Care Teams Appraiser Relationship Specialty Start Date End Date Jonna Mosher MD [address] [facility] [place] [address] PCP - General 05/21/22 documented as of this encounter Additional Source Comments The information contained in this document represents components of the legal health record. It is not the complete legal health record.[facility]
--- OUTSIDE RECORDS SUMMARY | 2024-12-14 10:42 | XMS_ITS | Encounter Summary ---
Author Organization [facility] Address [address] [place] [address] Phone Care Team Providers Care Patient Accounts Manager Name Role Phone Natali Lo MD Primary Care Provider Unavailabl e Encounter Details Date Type Department Care Team (Late st Contact Info) Description 01/27/2017 Conversion Encounter [facility] - [address] [address] Social History Tobacco Use Types Packs/Day Years [...] on filedocumented in this encounter Care Teams Patient Accounts Manager Relationship Specialty Start Date End Date Natali Lo MD PCP - General 11/05/16 documented as of this encounter
--- OUTSIDE RECORDS SUMMARY | 2024-12-14 10:42 | XMS_ITS | Encounter Summary ---
Author Organization [facility] Address [address] [place] [address] Phone Care Team Providers Care Cheese Cutter Name Role Phone Natali Lo MD Primary Care Provider Unavailabl e Encounter Details Date Type Department Care Team (Late st Contact Info) Description 04/21/2012 Documentation [facility] [place] Family [place] [facility] [place] [address] Family Medicine, Physician [facility] [place] [id number] Social History Tobacco Use Types Packs/Day Years [...] on filedocumented in this encounter Care Teams Cheese Cutter Relationship Specialty Start Date End Date Natali Lo MD PCP - General 11/05/16 documented as of this encounter
--- OUTSIDE RECORDS SUMMARY | 2024-12-14 10:42 | XMS_ITS | Clinical Summary ---
Author Organization [facility] [address] [facility] Address [address] [place] [phone] Phone Care Team Providers Care Kettle Chipper Name Role Phone Unavailable Primary Care Provider [...] 02/04/2019 02/04/2009, 10/11/2000, 04/10/1998, Additional history exists Depression Screening 03/28/2024 HIV Screening 04/09/2024 Hepatitis C Screening 04/09/2024 Social Influencers of Health Screening 04/09/2024 COVID-19 Vaccine ( season) 2024 Influenza Vaccine (#1) 2024 1, 02/05/2010, 02/04/2009, [...]
--- OUTSIDE RECORDS SUMMARY | 2024-12-14 10:43 | XMS_ITS | Encounter Summary ---
Author Organization [facility] Address [address] [place] [address] Phone Care Team Providers Care Grout Machine Operator Name Role Phone Natali Lo MD Primary Care Provider Unavailabl e Encounter Details Date Type Department Care Team (Late st Contact Info) Description 11/23/2011 Documentation [facility] [place] [facility] [place] [address] Family Medicine, Physician [facility] [place] [id number] Social History Tobacco Use Types Packs/Day Years [...] on filedocumented in this encounter Care Teams Grout Machine Operator Relationship Specialty Start Date End Date Natali Lo MD PCP - General 11/05/16 documented as of this encounter
--- OUTSIDE RECORDS SUMMARY | 2024-12-14 10:43 | XMS_ITS | Encounter Summary ---
Author Organization [facility] Address [address] [place] [address] Phone Care Team Providers Care Electric Deicer Inspector Name Role Phone Natali Lo MD Primary Care Provider Unavailabl e Encounter Details Date Type Department Care Team (Late st Contact Info) Description 07/26/2016 Documentation [facility] [place] [facility] [place] [address] Family Medicine, Physician [facility] [place], [place] [id number] Social History Tobacco Use Types Packs/Day Years [...] on filedocumented in this encounter Care Teams Electric Deicer Inspector Relationship Specialty Start Date End Date Natali Lo MD PCP - General 11/05/16 documented as of this encounter
--- OUTSIDE RECORDS SUMMARY | 2024-12-14 10:43 | XMS_ITS | Clinical Summary ---
Author Organization [facility] Address [address] [place] [address] Phone Care Team Providers Care Mechanical Inspector Name Role Phone Natali Lo MD [...] 04/10/1998, Additional history exists Influenza Vaccines (#1) 2024 02/10/20 11, 02/05/2010, 02/05/2008 COVID-19 Vaccine ( season) 2024 Hepatitis B Vaccines Completed 04/05/1997, 01/30/1997, 1996 [...] complete this topic Procedures * Due to [place] state law, this organization might not be sharing sensitive test results. Procedure Name Priority Date/Time Associated Diagnosis Comments CHLAMYDIA AND GONORRHEA, AMPLIFIED Routine 05/06/2017 5:04 PM EST Acute back pain, unspecified back location, unspecified back pain laterality from Last 3 Months or Most Recently Relevant to Health Maintenance Results * Due to [facility] law, this organization might not be sharing sensitive test results. * Chlamydia and Gonorrhoea, Amplified (05/06/2017 5:04 PM EST) Chlamydia Trachomatis, DNA Probe NEGATIVE (NEG) [facility] Comment: No Chlamydia Trachomatis RNA detected in this patient's sample (REFERENCE RANGE/NORMAL VALUE: NOT DETECTED) Note: This test uses gas plant technician- mediated amplification method to detect rRNA from C. Trachomatis URINE GC AMP PROBE NEGATIVE (NEG) [facility] Comment: No Neisseria Gonorrhoeae RNA detected in this patient's sample (REFERENCE RANGE/NORMAL VALUE: NOT DETECTED) NOTE: This test uses gas plant technician-mediated amplification method to detect rRNA from N.Gonorrhoeae. [...] without risk of sexual abuse. Consult the [facility] if needed. Contact phone number . Therapeutic failure or success cannot be determined with the Aptima Combo2 assay since nucleic acid may persist following appropriate antimicrobial therapy. The Centers for Disease Control and Prevention (CDC) recommends confirmatory retesting using culture or a different nucleic acid amplification test when positive results occur, if indicated. Testing performed or reported by [facility], a Service of [facility], [facility] [place] [address] CLIA [id number] Joe Sibley MD, PhD, Talent Scout Urine 05/06/2017 5:04 PM EST 05/07/2017 12:06 AM EST us Natali Lo MD LAB MICROBIOLOGY - GENERAL ORDER JOSE Final Result [facility] from Last 3 Months or Most Recently Relevant to Health Maintenance Insurance [address] [address] [address] [facility] Care Teams Mechanical Inspector Relationship Specialty Start Date End Date Natali Lo MD PCP - General 11/05/16
== END 2024-12-14 10:09 | disposition home or self-care (01) ==
LOC: HO.US 10:08
PROVIDERS: PCP Internal Medicine; Visit Provider Internal Medicine
DX: R60.0 Localized edema (principal)
CPT/HCPCS: 93971

== ENCOUNTER → 2024-12-14 10:10 | Outpatient (BNV) | payer OTHER, SELFPAY | PROVIDERS: PCP Internal Medicine; Visit Provider Radiology Diagnostic Radiology | DX: R22.31 Localized swelling, mass and lump, right upper limb (principal) | CPT/HCPCS: 93971 ==